=== PATIENT | male | born 1940 | race Caucasian/White ===

== ENCOUNTER 2022-03-27 06:40 | Inpatient (IN) ==
[2022-03-27] MEDS ORDERED: CeFAZolin Syr 2,000MG/20 ML 2,000 MG/20 ML SYRINGE IVPB ONE (07:34)
[2022-03-27] MEDS ORDERED: Ringers Solution, Lactated 1,000 ML IVC SCH ×2 (07:45→13:49)
[2022-03-27] MEDS ORDERED: Famotidine 20 MG TABLET PO ONE (08:00)
[2022-03-27] MEDS ORDERED: *HR* FentaNYL (PF) 100 MCG/2 ML VIAL ONE ×3 (08:39→11:06)
[2022-03-27] MEDS ORDERED: *HR* Midazolam HCl 2 MG/2 ML VIAL ONE (08:39)
[2022-03-27] MEDS ORDERED: Ropivacaine/PF 0.5% 30 ML VIAL ONE (08:41)
[2022-03-27] MEDS ORDERED: ROPIVACAINE/PF/NS 0.25% 1 EACH SYRINGE INTRAART ONE (08:42)
[2022-03-27] MEDS ORDERED: *HR* Propofol 200 MG/20 ML VIAL IVP ONE (09:40)
[2022-03-27] MEDS ORDERED: Lidocaine -MPF 2% 2 ML VIAL ONE (09:41)
[2022-03-27] MEDS ORDERED: Ondansetron 4 MG/2 ML VIAL ONE (09:42)
[2022-03-27] MEDS ORDERED: Vancomycin 1,000 MG VIAL ONE (09:46)
[2022-03-27] MEDS ORDERED: *HR* Rocuronium Bromide 50 MG/5 ML VIAL ONE (09:58)
[2022-03-27] MEDS ORDERED: Povidone-Iodine 45 ML, Sodium Chloride IRRigation 1,000 ML IR ONE (10:10)
[2022-03-27] MEDS ORDERED: TOTAL JOINT MIXTURE (100ML) INTRAART ONE (10:10)
[2022-03-27] MEDS ORDERED: Tranexamic Acid 1,000 MG/10 ML VIAL ONE (11:19)
[2022-03-27] MEDS ORDERED: Ondansetron 4 MG/2 ML VIAL IVP PRN ×2 (12:47→13:49)
[2022-03-27] MEDS ORDERED: *HR* OxyCODONE Immed Rel 5 MG TABLET PO PRN ×2 (12:47→13:49)
[2022-03-27] MEDS ORDERED: MOM Conc 10 ML UD.LIQ PO PRN (13:49)
[2022-03-27] MEDS ORDERED: Naloxone 0.4 MG/ML INJ IVP PRN (13:49)
[2022-03-27] MEDS ORDERED: Sennosides 8.6 MG TABLET PO PRN (13:49)
[2022-03-27] MEDS: *HR* OxyCODONE Immed Rel 5 MG TABLET PO PRN (14:40)
[2022-03-27] MEDS: Ascorbic Acid 500 MG TABLET PO SCH (17:15)
[2022-03-27] MEDS: CeFAZolin 2 GM/120 ML BAG IVPB SCH (17:16)
[2022-03-28] MEDS: CeFAZolin 2 GM/120 ML BAG IVPB SCH (02:48)
[2022-03-28 05:03] LABS: Basophils % 0.1 %; Hematocrit 32.4 % (37.5-50.1); Hemoglobin 10.7 g/dL (12.9-16.9); Immature Granulocytes % 0.3 % (0-4); Lymphocytes # 0.9 K/mcL (0.6-4.6); Lymphocytes % 9.8 %; Mean Corpuscular Hemoglobin 32.3 pg (28.0-33.3); Mean Corpuscular Volume 97.9 fL (83.0-100.0); Mean Platelet Volume 10.2 fL (9.4-12.4); Monocytes % 10.2 %; Neutrophils # 7.5 K/mcL (1.6-8.9); Platelet Count 149 K/mcL (140-400); Red Blood Count 3.31 M/mcL (4.19-5.50); Red Cell Distribution Width 12.6 % (11.5-14.5); Segmented Neutrophils % 79.6 %; White Blood Count 9.5 K/mcL (4.3-11.1)
[2022-03-28 05:20] LABS: Calcium 8.5 mg/dL (8.6-10.3); Potassium 4.9 mEq/L (3.5-5.1)
[2022-03-28] MEDS: Multivit/Ca/Min/Fe/FA 1 TAB TABLET PO SCH (07:55)
[2022-03-28] MEDS: Ascorbic Acid 500 MG TABLET PO SCH ×2 (07:55→15:55)
[2022-03-28] MEDS: *HR* OxyCODONE Immed Rel 5 MG TABLET PO PRN ×2 (11:05→22:52)
[2022-03-28] MEDS: Aspirin Enteric Coated 81 MG Tablet PO SCH ×2 (15:55→20:29)
[2022-03-29] MEDS: *HR* OxyCODONE Immed Rel 5 MG TABLET PO PRN ×4 (03:12→23:23)
[2022-03-29 05:15] LABS: Basophils % 0.3 %; Eosinophils % 0.5 %; Hematocrit 31.9 % (37.5-50.1); Hemoglobin 10.4 g/dL (12.9-16.9); Immature Granulocytes % 0.5 % (0-4); Lymphocytes % 13.4 %; Mean Corpuscular HGB Conc 32.6 g/dL (31.6-35.5); Mean Corpuscular Hemoglobin 31.6 pg (28.0-33.3); Mean Platelet Volume 10.9 fL (9.4-12.4); Neutrophils # 5.5 K/mcL (1.6-8.9); Platelet Count 141 K/mcL (140-400); Red Blood Count 3.29 M/mcL (4.19-5.50); Red Cell Distribution Width 12.8 % (11.5-14.5); Segmented Neutrophils % 72.3 %; White Blood Count 7.6 K/mcL (4.3-11.1)
[2022-03-29 05:37] LABS: Calcium 8.4 mg/dL (8.6-10.3); Potassium 4.7 mEq/L (3.5-5.1)
[2022-03-29] MEDS: Ascorbic Acid 500 MG TABLET PO SCH ×2 (09:04→16:52)
[2022-03-29] MEDS: Multivit/Ca/Min/Fe/FA 1 TAB TABLET PO SCH (09:05)
[2022-03-29] MEDS: Aspirin Enteric Coated 81 MG Tablet PO SCH ×2 (09:05→20:18)
[2022-03-30] MEDS: Aspirin Enteric Coated 81 MG Tablet PO SCH ×2 (07:50→21:48)
[2022-03-30] MEDS: Multivit/Ca/Min/Fe/FA 1 TAB TABLET PO SCH (07:51)
[2022-03-30] MEDS: Ascorbic Acid 500 MG TABLET PO SCH ×2 (07:51→16:41)
[2022-03-30] MEDS: *HR* OxyCODONE Immed Rel 5 MG TABLET PO PRN ×2 (11:53→21:48)
[2022-03-31] MEDS: Multivit/Ca/Min/Fe/FA 1 TAB TABLET PO SCH (10:08)
[2022-03-31] MEDS: Aspirin Enteric Coated 81 MG Tablet PO SCH (10:08)
[2022-03-31] MEDS: Ascorbic Acid 500 MG TABLET PO SCH ×2 (10:15→16:03)
[2022-03-31] MEDS: *HR* OxyCODONE Immed Rel 5 MG TABLET PO PRN ×2 (10:15→16:03)
[2022-03-31 12:29] LABS: Influenza A PCR Negative (Negative); Influenza B PCR Negative (Negative); Resp. Syncytial Virus PCR Negative (Negative)
[2022-03-31 12:54] LABS: SARS-CoV-2 by PCR (In House) Negative (Negative)
[2022-03-31 15:14] VITALS: BP 137/70; PULSE 72; TEMP 97.4; O2SAT 97
== END 2022-03-31 16:30 | DRG 470 ==
LOC: SDCAOSI 06:40 → 4WAOSI 12:59
PROVIDERS: ADMIT Orthopaedic Surgery; ATTEND Orthopaedic Surgery